=== PATIENT | female | born 1995 | race Two or more races ===

== ENCOUNTER 2018-03-19 12:00 | Emergency (ER) | payer OTHER ==
[~2018-03-19] VITALS: Ht 162.6 cm; Wt 130.2 kg
[2018-03-19 12:09] VITALS: BP 154/89
[2018-03-19] MEDS ORDERED: SILVER SULFADIAZINE CREAM 25 GM TUBE ONE (12:22)
[2018-03-19] MEDS ORDERED: TDAP [DIPH/PERTUSSIS/TET] 0.5 ML VIAL IM ONE ×2 (12:23→12:30)
[2018-03-19] MEDS ORDERED: SILVER SULFADIAZINE CREAM 25 GM TUBE TP ONE (12:30)
== END 2018-03-19 12:53 | disposition home or self-care (01) ==
LOC: ER 12:05
DX: T21.11XA Burn of first degree of chest wall, initial encounter (principal); Z60.2 Problems related to living alone; X12.XXXA Contact with other hot fluids, initial encounter; Y93.89 Activity, other specified; Y92.89 Other specified places as the place of occurrence of the external cause; Y99.0 Civilian activity done for income or pay
CPT/HCPCS: 90715